=== PATIENT | female | born 1950 | race Caucasian/White ===

== ENCOUNTER 2018-06-07 21:30 | Emergency (ER) | payer MEDICARE, OTHER ==
--- NOTE | 2018-06-07 21:56 | EDM.PDOC ---
ED HPI GENERAL MEDICAL PROBLEM - General Chief Complaint: Bite:Animal, Insect Stated Complaint: I have a insect bite on my leg Time Seen by Provider: 06/07/18 21:40 Source of Information: Reports: Patient History Limitations: Reports: No Limitations - History of Present Illness INITIAL COMMENTS - FREE TEXT/NARRATIVE: States that she noted a insect bite to the back of her left leg that she received yesterday. She has been applying after bite to it but tonight the itching became worse and she feels that it has become larger. The area is red around the outside and has a white center to it. No drainage or open area noted. No stinger or dark area noted to it. States that she didn't even feel when she was stung. Only noticed when it started to itch. Onset Date: 06/06/18 Location: Reports: Lower Extremity, Left Associated Symptoms: Reports: Other (itching) - Related Data Allergies Allergy/AdvReac Type Severity Reaction Status Date / Time naproxen Allergy Anaphylactic Verified 06/07/18 21:44 Shock tolmetin [From Tolectin] Allergy Weakness Verified 06/07/18 21:44 Home Meds: Home Meds Hydrochlorothiazide 12.5 mg PO DAILY 06/07/18 [History] Social & Family History - Tobacco Use Smoking Status *Q: Never Smoker - Living Situation & Occupation Living situation: Reports: , with Spouse Occupation: Retired ED ROS GENERAL - Review of Systems Review Of Systems: See Below Constitutional: Denies: Fever Skin: Reports: Pruritis (posterior left calf.) ED EXAM, ANIMAL BITE - Physical Exam Exam: See Below Exam Limited By: No Limitations General Appearance: Alert, WD/WN, No Apparent Distress Skin Exam: Normal Color, Other (Does have what appears to be an insect sting of unknown origin to the posterior left calf. It is 2 cm in diameter and is red around it with white area in the center. No open area or draiange noted. slightly raised. No stinger noted.) Course - Vital Signs Last Recorded V/S: Last Vital Signs Temp 96.4 F 06/07/18 21:40 Pulse 89 06/07/18 21:40 Resp 20 06/07/18 21:40 BP 125/90 06/07/18 21:40 Pulse Ox 98 06/07/18 21:40 Departure - Departure Time of Disposition: 21:51 Disposition: Home, Self-Care 01 Condition: Good Clinical Impression: Insect sting Qualifiers: Encounter type: initial encounter Injury intent: accidental or unintentional Qualified Code(s): T63.481A - Toxic effect of venom of other arthropod, accidental (unintentional), initial encounter - Discharge Information Instructions: Insect Bite, Adult, [id number] Additional Instructions: Benadryl 25 mg orally every 12 hours as needed for itching that is not controlled by the topical Benadryl cream or ointment to the sting every 2-3 hours as needed for the symptoms. Recheck in the clinic if symptoms change. - Problem List & Annotations (1) Insect sting SNOMED Code(s): 144298160 Code(s): T63.481A - TOXIC EFFECT OF VENOM OF ARTHROPOD, ACCIDENTAL, INIT Status: Acute Priority: High Qualifiers: Encounter type: initial encounter Injury intent: accidental or unintentional Qualified Code(s): T63.481A - Toxic effect of venom of other arthropod, accidental (unintentional), initial encounter - Problem List Review Problem List Initiated/Reviewed/Updated: Yes
== END 2018-06-07 22:08 | disposition home or self-care (01) ==
LOC: CC.ED 21:30
DX: T63.481A Toxic effect of venom of other arthropod, accidental (unintentional), initial encounter (principal); Z88.8 Allergy status to other drugs, medicaments and biological substances; Z79.899 Other long term (current) drug therapy
CPT/HCPCS: 99281; 99283